=== PATIENT | female | born 1985 | race Caucasian/White ===

== ENCOUNTER 2016-05-20 19:11 | Emergency (ER) | payer OTHER, MEDICAID ==
[~2016-05-20] VITALS: Ht 167.6 cm; Wt 73.5 kg
[~2016-05-20 19:11] MED LIST: LORTA5 PO; ZOFR4TAB3 SL
[2016-05-20 19:23] VITALS: BP 117/81; PULSE 100; RESP 18; TEMP 100; O2SAT 99
[2016-05-20] MEDS ORDERED: IBUPROFEN 800 MG TAB PO ONE (22:45)
--- NOTE | 2016-05-20 22:52 | PD ---
HPI Chief Complaint: ENT Complaint Time Seen by Provider: 22:45 Travel History International Travel<30 days: No Contact w/Intl Traveler<30days: No Traveled to known affect area: No History of Present Illness HPI 30-year-old female presents to the emergency department by private transportation for complaint of 3 days of sore throat and fever. 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 Patient states due to sore throat has had poor oral intake secondary to pain. Patient also complains of earache. Patient has been taking Tylenol for fever. Patient has not been using ibuprofen. Patient reports that pain is 5/10 intensity. Patient's had nonproductive cough. Patient did blow her nose with some discolored drainage. Patient denies any chronic medical conditions. Last period was at the end of April and normal for her and patient denies . Patient's had nausea but no vomiting. Patient's had mild diarrhea. Patient denies any chest pain shortness breath back pain flank pain abdominal pain no report of dysuria frequency or urgency. No reported myalgias or arthralgias. PFSH Past Medical History Narrative Medical Anemia anxiety migraines remote superficial thrombophlebitis LLE tubal ligation no tobacco use nursing notes reviewed Anemia: Yes Anxiety: Yes Cancer: No Diabetes: No Diminished Hearing: No Deep Vein Thrombosis: Yes (> 4 years) Hepatitis: No Hiatal Hernia: No Hypertension: No Immunizations Current: No Migraines: Yes Thyroid Disease: No ?: Not : 4 Para: 4 Miscarriage: 0 : 0 Tubal Ligation: Yes (2010) Past Surgical History Section: No Pacemaker: No Other Surgery: No Social History Alcohol Use: Yes (occasional) Tobacco Use: No Substance Use: No Allergies-Medications (Allergen,Severity, Reaction): Coded Allergies: Latex (Verified Allergy, Mild, Rash, 05/20/16) Reported Meds & Prescriptions Reported Meds & Active Scripts Active Lortab (Hydrocodone-Acetaminophen) 5-325 Mg Tab 1 Tab PO Q6H PRN Zithromax Z-Niles (Azithromycin) 250 Mg Dspk 250 Mg PO DIRECTED 500 MG (2 tabs) day 1, then 1 tab days 2-5. Ensign 5-325 mg (Hydrocodone-Acetaminophen 5-325 mg) 5 mg/325 mg Tab 1 Tab PO Q6H PRN Zofran ODT (Ondansetron HCl) 4 Mg Tab 4 Mg SL Q6H PRN FOR NAUSEA/VOMITING Review of Systems Except as stated in HPI: all other systems reviewed are Neg General / Constitutional: Positive: Fever, Chills HENT: Positive: Sore Throat, Congestion, Earache Cardiovascular: No: Chest Pain or Discomfort Respiratory: Positive: Cough, No: Shortness of Breath, Pleuritic Pain Gastrointestinal: Positive: Nausea, Diarrhea, No: Vomiting, Abdominal Pain Genitourinary: No: Dysuria, Flank Pain Musculoskeletal: No: Myalgias, Arthralgias Skin: No Rash Neurologic: No: Weakness Psychiatric: No: Anxiety Endocrine: No: Heat Intolerance Hematologic/Lymphatic: Positive: Lymph Node Enlargement, No: Easy Bruising Physical Exam Narrative GENERAL: Well-developed well-nourished female in no acute distress no respiratory distress. SKIN: Warm and dry. HEAD: Normocephalic. EYES: No scleral icterus. No injection or drainage. ENT: Mucous membranes moist airway is patent bilateral tonsillar edema with exudative change; bilateral tympanic membranes no redness no dullness no loss of landmarks no perforation. NECK: Supple, trachea midline. No JVD. Anterior cervical chain lymphadenopathy. CARDIOVASCULAR: Regular rate and rhythm without murmurs, gallops, or rubs. RESPIRATORY: Breath sounds equal bilaterally. No accessory muscle use. GASTROINTESTINAL: Abdomen soft, non-tender, nondistended. MUSCULOSKELETAL: No cyanosis, or edema. BACK: Nontender without obvious deformity. No CVA tenderness. Data Data Last Documented VS Vital Signs Date Time Temp Pulse Resp B/P Pulse Ox O2 Delivery O2 Flow Rate FiO2 05/21/16 00:42 99.3 101 16 97 05/20/16 19:23 117/81 Orders Group A Rapid Strep Screen (05/20/16 22:44) Influenzae A/B Antigen (05/20/16 22:44) Ibuprofen (Motrin) (05/20/16 22:45) Strep Culture (Group A) (05/20/16 23:35) MDM Medical Decision Making Medical Screen Exam Complete: Yes Emergency Medical Condition: Yes Medical Record Reviewed: Yes (medical record reviewed) Interpretation(s) influenza a/b ag: negative rsa: negative Differential Diagnosis Tonsillitis, sinusitis, influenza, otitis media, bronchitis, pneumonia, viral syndrome, mononucleosis, dehydration, sialadenitis; also to consider peritonsillar abscess and retropharyngeal abscess Narrative Course Patient presents with apparent tonsillitis has been taking as needed acetaminophen for fever without improvement of symptoms with recent exposure to multiple possible sources for respiratory illness that she works in a daycare. Patient with temperature elevation of 100.0F in triage. Patient administered ibuprofen and specimens collected for rapid strep antigen and influenza. No indication for imaging or x-ray at this time. @ 00:15 informed of lab results and stable for outpatient management Diagnosis Primary Impression: Pharyngitis, acute Referrals: Primary Care Physician call for appointment Patient Instructions: General Instructions Additional Instructions: Increase fluid hydration Take acetaminophen/Tylenol every 4 hours as needed for fever 100.4F or greater and take ibuprofen/Advil/Motrin every 6-8 hours as needed for fever 100.4F or greater or for pain associated with inflammation Complete course of antibiotic as prescribed For symptom relief use warm salt water gargles lozenges and Chloraseptic spray Increase fluid hydration No work times one day Return to the emergency department for any concerns or change in condition Follow-up with your primary care provider Med/Other Pt SpecificInfo: Prescription(s) given Scripts Hydrocodone-Acetaminophen (Lortab)5-325 Mg Tab1 Tab PO Q6H PRN (PAIN) #7 TAB Ref 0 Prov:Bree Louis MD 05/21/16 Azithromycin (Zithromax Z-Niles)250 Mg [id number] Mg PO DIRECTED #1 DSPK Ref 0 500 MG (2 tabs) day 1, then 1 tab days 2-5. Prov:Bree Louis MD 05/21/16 Disposition: 01 DISCHARGE HOME Condition: Stable Bree Louis MD May 20, 2016 22:52
[2016-05-21] MEDS ORDERED: HYDR-3533 PO (00:16)
[2016-05-21] MEDS ORDERED: ZITHTAB PO (00:16)
[2016-05-21 00:42] VITALS: TEMP 99.3
== END 2016-05-21 00:44 | disposition home or self-care (01) ==
LOC: PHED 19:11 → PHEFT 05-21 00:44
DX: J02.9 Acute pharyngitis, unspecified (principal); Z86.718 Personal history of other venous thrombosis and embolism
CPT/HCPCS: 87081; 87804; 87880; 99283

== ENCOUNTER 2017-04-19 09:35 | Emergency (ER) | payer MEDICAID ==
[~2017-04-19] VITALS: Ht 165.1 cm; Wt 66.2 kg
[~2017-04-19 09:35] MED LIST changes: +HYDR-3533 PO; +ZITHTAB PO
[2017-04-19 10:00] VITALS: BP 117/64; PULSE 73; RESP 16; TEMP 98.3; O2SAT 98
[2017-04-19] MEDS ORDERED: IPRA0.06 EACH NARE (10:22)
[2017-04-19] MEDS ORDERED: HYDR5SYP10 PO (10:22)
[2017-04-19] MEDS ORDERED: IBUP1TAB7 PO (10:22)
--- NOTE | 2017-04-19 10:23 | PD ---
HPI Chief Complaint: Cold / Flu Symptoms Time Seen by Provider: 10:14 Travel History International Travel<30 days: No Contact w/Intl Traveler<30days: No Traveled to known affect area: No History of Present Illness HPI Patient is a 31-year-old female presenting to emergency department for evaluation of cough, throat irritation, body aches, headache, fever, chills. Patient states her symptoms started 3 days ago, she denies any nausea or vomiting. She has been taking TheraFlu with some relief of her symptoms. She states the cough is irritating her throat, she denies any dysphasia or drooling. Patient states she feels as if she is getting worse. She has no significant past medical history. She has no other complaints at this time. Onset of symptoms was gradual, she is 3 days into her illness. PFSH Past Medical History Medical History: Denies Significant Hx Anemia: Yes Anxiety: Yes Deep Vein Thrombosis: Yes (> 4 years) Hypertension: No Respiratory: No Immunizations Current: No Migraines: Yes Thyroid Disease: No ?: Not LMP: 04/02/17 : 4 Para: 4 Miscarriage: 0 : 0 Tubal Ligation: Yes (2010) Past Surgical History Surgical History: No Previous Surgery Section: No Pacemaker: No Other Surgery: No Social History Alcohol Use: No Tobacco Use: No Substance Use: No Allergies-Medications (Allergen,Severity, Reaction): Coded Allergies: latex (Unverified Allergy, Mild, Rash, 04/19/17) Reported Meds & Prescriptions Reported Meds & Active Scripts Active Ibuprofen 800 Mg Tab 800 Mg PO Q6HR PRN Ipratropium Nasal 0.06% Piqu[place] 1 Piqua EACH NARE QID Hydrocodone-Homatropine Liq 5-1.5 Mg/5 Ml Syrp 5 Ml PO Q6H PRN Review of Systems Except as stated in HPI: all other systems reviewed are Neg General / Constitutional: Positive: Fever, Chills HENT: Positive: Headaches Cardiovascular: No: Chest Pain or Discomfort Respiratory: Positive: Cough, No: Shortness of Breath, Wheezing Gastrointestinal: No: Nausea, Vomiting, Abdominal Pain Musculoskeletal: Positive: Myalgias Neurologic: No: Weakness, Dizziness Physical Exam Narrative GENERAL: Well-developed, well-nourished, well-appearing female. Resting comfortably in no acute distress. SKIN: Warm and dry. HEAD: Atraumatic. Normocephalic. EYES: Pupils equal and round. No scleral icterus. No injection or drainage. ENT: No nasal bleeding or discharge. Mucous membranes pink and moist. Posterior pharynx cobblestone appearance. NECK: Trachea midline. No JVD. CARDIOVASCULAR: Regular rate and rhythm. RESPIRATORY: No accessory muscle use. Clear to auscultation. Breath sounds equal bilaterally. No wheezes, rhonchi, rales noted. GASTROINTESTINAL: Abdomen soft, non-tender, nondistended. Hepatic and splenic margins not palpable. MUSCULOSKELETAL: Extremities without clubbing, cyanosis, or edema. No obvious deformities. NEUROLOGICAL: Awake and alert. No obvious cranial nerve deficits. Motor grossly within normal limits. Five out of 5 muscle strength in the arms and legs. Normal speech. PSYCHIATRIC: Appropriate mood and affect; insight and judgment normal. Data Data Last Documented VS Vital Signs Date Time Temp Pulse Resp B/P (MAP) Pulse Ox O2 Delivery O2 Flow Rate FiO2 04/19/17 10:00 98.3 73 16 117/64 (81) 98 Orders Orders Ed Discharge Order (04/19/17 10:23) [facility] Medical Decision Making Medical Screen Exam Complete: Yes Emergency Medical Condition: Yes Interpretation(s) Vital Signs Date Time Temp Pulse Resp B/P (MAP) Pulse Ox O2 Delivery O2 Flow Rate FiO2 04/19/17 10:00 98.3 73 16 117/64 (81) 98 Differential Diagnosis Influenza versus viral syndrome versus bronchitis versus other Narrative Course Patient is a 31-year-old female presenting with 3 days of cold of flulike symptoms. Her vital signs are stable, she is afebrile. Patient is out of the window for Tamiflu, we'll defer testing for influenza as treatment would be the same. Her lungs are clear to auscultation bilaterally. At this time patient was encouraged to continue symptomatic management. She was educated that her symptoms may continue for up to one week. She was encouraged to maintain adequate fluid intake, rest and take medications as needed and as directed. Patient was provided with prescriptions for ibuprofen, cough medicine, and ipratropium nasal spray. She was encouraged to follow-up with her primary doctor return to emergency department for any new or worsening symptoms. Patient verbalized understanding of these instructions. Patient stable for discharge. Diagnosis Primary Impression: Viral syndrome Referrals: Primary Care Physician 1 week Patient Instructions: General Instructions, Viral Syndrome (DC) Additional Instructions: Follow-up with your primary doctor Continue symptom management Maintain adequate fluid intake Rest Return to emergency department for any new or worsening symptoms Med/Other Pt SpecificInfo: Prescription(s) given Scripts Ibuprofen (Ibuprofen) 800 Mg Tab 800 MG PO Q6HR Y for PAIN, #40 TAB 0 Refills Prov: Leah Martinez 04/19/17 Ipratropium Nasal (Ipratropium Nasal) 0.06% [place] 1 SPRAY EACH NARE QID, #1 BOTTLE 0 Refills Prov: Leah Martinez 04/19/17 Hydrocodone-Homatropine Liq (Hydrocodone-Homatropine Liq) 5-1.5 Mg/5 Ml Syrp 5 ML PO Q6H Y for COUGH, #120 ML 0 Refills Prov: Leah Martinez 04/19/17 Disposition: 01 DISCHARGE HOME Condition: Stable Leah Martinez Apr 19, 2017 10:23
== END 2017-04-19 10:31 | disposition home or self-care (01) ==
LOC: PHEFT 09:35
DX: B34.9 Viral infection, unspecified (principal); F41.9 Anxiety disorder, unspecified; Z86.718 Personal history of other venous thrombosis and embolism
CPT/HCPCS: 99284